=== PATIENT | female | born 1990 | race Caucasian/White ===

== ENCOUNTER 2022-05-08 09:06 | Emergency (ER) | payer BC ==
[2022-05-08] MEDS ORDERED: Hydromorphone 1 mg/ml Injection IV ONE ×2 (09:22→10:40)
[2022-05-08] MEDS ORDERED: Hydromorphone 1 mg/ml Injection ONE ×2 (09:32→10:52)
--- NOTE | 2022-05-08 09:37 | ERPHSYRPT ---
- History of Present Illness Time Seen by Provider: 05/08/22 09:31 Source: patient Exam Limitations: no limitations Physician History: Patient is a 32-year-old 4 para 2 AB 1 at 19 weeks gestation who presents with a complaint of a migraine headache. She reports a history of migraines when she was younger and during previous pregnancies. She is considered a high risk since she had an ablation prior to this . She is followed by an [facility] in [place] who is unavailable at the present time. She complains of dizziness lightheadedness some blurred vision in the left eye she also complains of some numbness in the hands and feet. She does complain of nasal congestion for 3 weeks. 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 She was tested April 12 for COVID RSV and flu. As well as strep A. Occurred: last week Severity: moderate (6-7 of 10) Head Injury Location: frontal Loss of Consciousness: no loss of consciousness Associated Symptoms: cough, headaches Allergies/Adverse Reactions: cefaclor [From [facility]] Allergy (Intermediate, Verified 12/17/19 09:33) doxycycline Allergy (Verified 05/08/22 09:48) Home Medications: Pnv No.103/Folic/Om3s/Fish Oil [ Gummies] 1 tab PO DAILY 05/08/22 [History] Hx Tetanus, Diphtheria Vaccination/Date Given: Yes Hx Influenza Vaccination/Date Given: No Hx Pneumococcal Vaccination/Date Given: No - Review of Systems Constitutional: No Fever, No Chills Eyes: Vision Changes Ears, Nose, & Throat: Nose Congestion, Nose Discharge, Sinus Drainage Respiratory: Cough, No Dyspnea Cardiac: No Chest Pain, No Edema, No Syncope Abdominal/Gastrointestinal: No Abdominal Pain, No Nausea, No Vomiting, No Diarrhea Genitourinary Symptoms: No Dysuria Musculoskeletal: No Back Pain, No Neck Pain Skin: No Rash Neurological: No Dizziness, No Focal Weakness, No Sensory Changes Psychological: No Symptoms Endocrine: No Symptoms All Other Systems: Reviewed and Negative - Past Medical History Pertinent Past Medical History: Yes Psycho-Social History: Anxiety, Attention Deficit Disorder - Past Surgical History Past Surgical History: No Musculoskeletal: Other Other Surgical History: CYST REMOVED FROM LEFT KNEE - Social History Smoking Status: Never smoker Exposure to second hand smoke: No Alcohol Use: None Drug Use: none Patient Lives Alone: No Significant Family History: no pertinent family hx - Nursing Vital Signs Nursing Vital Signs: Initial Vital Signs Temperature 96.6 F 05/08/22 09:18 Pulse Rate 86 05/08/22 09:18 Respiratory Rate 16 05/08/22 09:18 Blood Pressure 132/81 05/08/22 09:18 O2 Sat by Pulse Oximetry 99 05/08/22 09:18 Pain Scale Pain Intensity 4 - Stephanie Coma Score Best Eye Response ([place]): (4) open spontaneously Best Verbal Response ([place]): (5) oriented Best Motor Response ([place]): (6) obeys commands Stephanie Total: 15 - Physical Exam General Appearance: mild distress Head Injury: no evidence of injury Eye Exam: bilateral eye: normal inspection, PERRL, EOMI, other (Funduscopic exam shows the margins to be sharp for both discs) ENT Exam: airway nml Neck Exam: supple, trachea midline, full range of motion Cardiovascular/Respiratory Exam: chest non-tender, normal breath sounds, regular rate/rhythm Gastrointestinal/Abdominal Exam: soft, non tender, no distention, normal bowel sounds ( heart tones are positive in the 150 range) Rectal Exam: deferred Back Exam: normal inspection, No vertebral tenderness Extremity Exam: non-tender, normal range of motion, normal inspection Mental Status Exam: alert, oriented x 3, 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 Exam: normal hearing, normal speech, PERRL, tongue midline Coordination/Gait Exam: normal gait, normal cerebellar function Motor/Sensory Exam: no motor deficit, no sensory deficit, CN II-XII intact Skin Exam: normal color, warm, dry, No rash SpO2 Interpretation: normal SpO2: 100 O2 Delivery: Room Air Ordered Tests: Active Orders 24 hr Category Date Time Status IV Insertion STAT Care 05/08/22 09:22 Active CBC W DIFF Stat Lab 05/08/22 09:40 Completed CMP Stat Lab 05/08/22 09:40 Completed UA W/RFX CULTURE Stat Lab 05/08/22 10:33 Results Medication Summary Discontinued Medications Generic Name Dose Route Start Last Admin Trade Name Freq PRN Reason Stop Dose Admin Hydromorphone HCl 0.5 mg 05/08/22 09:22 05/08/22 09:51 Hydromorphone 1 Mg/1ml Inj 1 Mg/Ml Syringe IV 05/08/22 09:23 0.5 mg STAT ONE Administration Hydromorphone HCl Confirm 12/27/22 09:32 Hydromorphone 1 Mg/1ml Inj 1 Mg/Ml Syringe Administered 05/08/22 09:33 Dose 1 mg .ROUTE .STK-MED ONE Hydromorphone HCl 0.5 mg 05/08/22 10:40 Hydromorphone 1 Mg/1ml Inj 1 Mg/Ml Syringe IV 05/08/22 10:41 STAT ONE Lab/Rad Data: Laboratory Result Diagrams 05/08/22 09:40 05/08/22 09:40 Laboratory Results 05/08/22 05/08/22 05/08/22 Range/Units Unknown 10: 09:40 WBC (4.0-10.5) x10^3/uL RBC (4.1-5.4) x10^6/uL Hgb (12.0-16.0) g/dL Hct (35-47) % MCV (78-100) fL MCH (26-32) pg MCHC (32-36) g/dL RDW (11.5-14.0) % Plt Count (150-450) x10^3/uL MPV (7.5-11.0) fL Gran % (36.0-66.0) % Immature Gran % (Auto) (0.00-0.4) % Nucleat RBC Rel Count (0.00-0.1) % Eos # (Auto) (0-0.5) x10^3/uL Immature Gran # (Auto) (0.00-0.03) x10^3u/L Absolute Lymphs (auto) (1.0-4.6) x10^3/uL Absolute Monos (auto) (0.0-1.3) x10^3/uL Absolute Nucleated RBC (0.00-0.01) x10^3u/L Lymphocytes % (24.0-44.0) % Monocytes % (0.0-12.0) % Eosinophils % (0.00-5.0) % Basophils % (0.0-0.4) % Absolute Granulocytes (1.4-6.9) x10^3/uL Basophils # (0-0.4) x10^3/uL Sodium 134 L (137-145) mmol/L Potassium 3.9 (3.5-5.1) mmol/L Chloride 103 (98-107) mmol/L Carbon Dioxide 24 (22-30) mmol/L Anion Gap 10.2 (5-15) MEQ/L BUN 12 (7-17) mg/dL Creatinine 0.50 L (0.52-1.04) mg/dL Estimated GFR > 60.0 ML/MIN Glucose 87 (74-106) mg/dL Calcium 8.9 (8.4-10.2) mg/dL Total Bilirubin 0.70 (0.2-1.3) mg/dL AST 35 (14-36) U/L ALT 22 (0-35) U/L Alkaline Phosphatase 71 (38-126) U/L Serum Total Protein 7.3 (6.3-8.2) g/dL Albumin 4.2 (3.5-5.0) g/dL Urinalys Dipstick Clnc MAIN LAB Urine Color YELLOW (YELLOW) Urine Appearance CLEAR (CLEAR) Urine pH 6.0 (5-6) Ur Specific [place] 1.010 (1.005-1.025) POC Urine Protein Conf NEGATIVE (Negative) Urine Ketones NEGATIVE (NEGATIVE) Urine Nitrite NEGATIVE (NEGATIVE) Urine Bilirubin NEGATIVE (NEGATIVE) Urine Urobilinogen 0.2 (0-1) mg/dL Urine Leukocytes SMALL A (NEGATIVE) Urine WBC (Auto) Pending Urine RBC (Auto) Pending U Epithel Cells (Auto) Pending Urine Bacteria (Auto) Pending Urine RBC NEGATIVE (0-5) Sky/ul Ur Culture Indicated? Pending Urine Glucose NEGATIVE (NEGATIVE) mg/dL Influenza Type A Ag NEGATIVE (NEGATIVE) Influenza Type B Ag NEGATIVE (NEGATIVE) RSV (PCR) NEGATIVE (Negative) SARS-CoV-2 (PCR) NEGATIVE (NEGATIVE) 05/08/22 Range/Units 09:40 WBC 12.7 H (4.0-10.5) x10^3/uL RBC 4.14 (4.1-5.4) x10^6/uL Hgb 12.9 (12.0-16.0) g/dL Hct 39.5 (35-47) % MCV 95.4 (78-100) fL MCH 31.2 (26-32) pg MCHC 32.7 (32-36) g/dL RDW 13.6 (11.5-14.0) % Plt Count 202 (150-450) x10^3/uL MPV 9.8 (7.5-11.0) fL Gran % 77.1 H (36.0-66.0) % Immature Gran % (Auto) 0.9 H (0.00-0.4) % Nucleat RBC Rel Count 0.0 (0.00-0.1) % Eos # (Auto) 0.09 (0-0.5) x10^3/uL Immature Gran # (Auto) 0.12 H (0.00-0.03) x10^3u/L Absolute Lymphs (auto) 2.09 (1.0-4.6) x10^3/uL Absolute Monos (auto) 0.60 (0.0-1.3) x10^3/uL Absolute Nucleated RBC 0.00 (0.00-0.01) x10^3u/L Lymphocytes % 16.4 L (24.0-44.0) % Monocytes % 4.7 (0.0-12.0) % Eosinophils % 0.7 (0.00-5.0) % Basophils % 0.2 (0.0-0.4) % Absolute Granulocytes 9.81 H (1.4-6.9) x10^3/uL Basophils # 0.03 (0-0.4) x10^3/uL Sodium (137-145) mmol/L Potassium (3.5-5.1) mmol/L Chloride (98-107) mmol/L Carbon Dioxide (22-30) mmol/L Anion Gap (5-15) MEQ/L BUN (7-17) mg/dL Creatinine (0.52-1.04) mg/dL Estimated GFR ML/MIN Glucose (74-106) mg/dL Calcium (8.4-10.2) mg/dL Total Bilirubin (0.2-1.3) mg/dL AST (14-36) U/L ALT (0-35) U/L Alkaline Phosphatase (38-126) U/L Serum Total Protein (6.3-8.2) g/dL Albumin (3.5-5.0) g/dL Urinalys Dipstick Clnc Urine Color (YELLOW) Urine Appearance (CLEAR) Urine pH (5-6) Ur Specific [place] (1.005-1.025) POC Urine Protein Conf (Negative) Urine Ketones (NEGATIVE) Urine Nitrite (NEGATIVE) Urine Bilirubin (NEGATIVE) Urine Urobilinogen (0-1) mg/dL Urine Leukocytes (NEGATIVE) Urine WBC (Auto) Urine RBC (Auto) U Epithel Cells (Auto) Urine Bacteria (Auto) Urine RBC (0-5) Sky/ul Ur Culture Indicated? Urine Glucose (NEGATIVE) mg/dL Influenza Type A Ag (NEGATIVE) Influenza Type B Ag (NEGATIVE) RSV (PCR) (Negative) SARS-CoV-2 (PCR) (NEGATIVE) - Departure Departure Disposition: Home Clinical Impression: Sinusitis, 19 weeks gestation of , Migraine headache Condition: Stable Critical Care Time: No Referrals: TRI CEBALLOS NP [NON-STAFF PHY W/O PRIVILEGES] - Follow up/PCP as directed Instructions: Headache, Adult (DC), Sinusitis in Adults, Sinus Headache (DC) Prescriptions: Cephalexin Mh 500 mg [Keflex 500 mg] 500 mg PO TID #21 cap Cephalexin Mh 500 mg [Keflex 500 mg] 500 mg PO TID #21 cap
[2022-05-08 09:54] LABS: Absolute Neutrophil Ct (ANC) 9.81 x10^3/uL (1.4-6.9); Basophil (Absolute #) 0.03 x10^3/uL (0-0.4); Eosinophil % 0.7 % (0.00-5.0); Eosinophil (Absolute #) 0.09 x10^3/uL (0-0.5); Hematocrit 39.5 % (35-47); Hemoglobin 12.9 g/dL (12.0-16.0); Lymphocyte (Absolute #) 2.09 x10^3/uL (1.0-4.6); Lymphocytes % 16.4 % (24.0-44.0); Mean Cell Volume 95.4 fL (78-100); Mean Corpuscular Hemoglobin 31.2 pg (26-32); Mean Corpuscular Hgb Concent. 32.7 g/dL (32-36); Mean Platelet Volume 9.8 fL (7.5-11.0); Monocytes % 4.7 % (0.0-12.0); Neutrophil % 77.1 % (36.0-66.0); Platelet Count 202 x10^3/uL (150-450); Red Blood Count 4.14 x10^6/uL (4.1-5.4); Red Cell Distribution Width 13.6 % (11.5-14.0); White Blood Count 12.7 x10^3/uL (4.0-10.5)
[2022-05-08 10:01] LABS: ALBUMIN 4.2 g/dL (3.5-5.0); ALKALINE PHOSPHATASE 71 U/L (38-126); ANION GAP 10.2 MEQ/L (5-15); BLOOD UREA NITROGEN 12 mg/dL (7-17); CHLORIDE 103 mmol/L (98-107); Calcium 8.9 mg/dL (8.4-10.2); Carbon Dioxide 24 mmol/L (22-30); EST GLOMERULAR FILTRATION RATE > 60.0 ML/MIN; Glucose 87 mg/dL (74-106); Potassium 3.9 mmol/L (3.5-5.1); SGOT/AST 35 U/L (14-36); SGPT/ALT 22 U/L (0-35); SODIUM 134 mmol/L (137-145); Total Protein 7.3 g/dL (6.3-8.2)
[2022-05-08 10:29] LABS: INFLUENZA A NEGATIVE (NEGATIVE); INFLUENZA B NEGATIVE (NEGATIVE); RESPIRATORY SYNCTIAL VIRUS NEGATIVE (Negative); SARS-CoV-2 Xpert Express NEGATIVE (NEGATIVE)
[2022-05-08 10:37] LABS: Appearance CLEAR (CLEAR); Bilirubin NEGATIVE (NEGATIVE); Dipstick done @ ? MAIN LAB; Glucose NEGATIVE (NEGATIVE); Ketones NEGATIVE (NEGATIVE); Nitrite NEGATIVE (NEGATIVE); Protein,Urine Dip NEGATIVE (Negative); RBC NEGATIVE Ery/ul (0-5); Urobilinogen 0.2 mg/dL (0-1)
[2022-05-08 10:44] LABS: Epithelial Cells RARE /HPF (FEW); Mucus SLIGHT /HPF (NEGATIVE); RBC 0-2 /HPF (0-2)
[2022-05-08 10:49] LABS: Bacteria FEW /HPF (NEGATIVE); Urine Cultured Indicated? NO
[2022-05-08 11:09] VITALS: BP 105/65; PULSE 86; O2SAT 97
== END 2022-05-08 11:25 | disposition home or self-care (01) ==
LOC: ED 09:06
DX: J32.9 Chronic sinusitis, unspecified (principal); G43.909 Migraine, unspecified, not intractable, without status migrainosus; Z33.1 Pregnant state, incidental; R42 Dizziness and giddiness; H53.8 Other visual disturbances; R20.2 Paresthesia of skin
CPT/HCPCS: 0241U; 36000; 36415; 80053; 81015; 85025; 96374; 96376; 99284; J1170